=== PATIENT | male | born 1990 | race Caucasian/White ===

== ENCOUNTER 2017-01-13 18:46 | Inpatient (IN) | payer OTHER ==
[2017-01-13] MEDS ORDERED: HYDROmorphONE/DILAUDID 1 MG/ML SYR IVP ONE ×4 (19:35→23:35)
[2017-01-13] MEDS ORDERED: ONDANSETRON 4 MG/2 ML VIAL IVP ONE (19:35)
[2017-01-13 19:41] LABS: % IMMATURE GRANULYOCYTES 0.5 % (0.0-1.1); ABSOLUTE IMMATURE GRANULOCYTES 0.05 10^3/uL (0.00-0.10); ADD DIFF? NO; ADD MORPH? NO; ADD SCAN? NO; ATYPICAL LYMPHOCYTE FLAG 10 (0-99); FRAGMENT RBC FLAG 0 (0-99); HEMATOCRIT 49.3 % (40.0-51.0); LEFT SHIFT FLG 0 (0-99); LIPEMIA HEMOLYSIS FLAG 90 (0-99); MEAN CELL HEMOGLOBIN 33.6 pg (27.9-34.1); MEAN CELL HEMOGLOBIN CONCENTR. 36.5 g/dL (32.4-36.7); MEAN CELL VOLUME 92.1 fL (81.5-99.8); MEAN PLATELET VOLUME 10.6 fL (8.7-11.7); PLATELET CLUMPS FLAG 10 (0-99); PLATELET COUNT 229 10^3/uL (150-400); RED BLOOD CELL COUNT 5.35 10^6/uL (4.40-6.38); RED CELL DISTRIBUTION WIDTH 11.9 % (11.5-15.2)
[2017-01-13 19:46] LABS: ALANINE AMINOTRANSFERASE 216 IU/L (21-72); ALBUMIN 4.9 g/dL (3.5-5.0); ALKALINE PHOSPHATASE 137 IU/L (38-126); ANION GAP 13 mEq/L (8-16); ASPARTATE AMINOTRANSFERASE 117 IU/L (17-59); BILIRUBIN,TOTAL 1.2 mg/dL (0.1-1.4); BILIRUBIN-CONJUGATED 0.6 mg/dL (0.0-0.5); BILIRUBIN-UNCONJUGATED 0.6 mg/dL (0.0-1.1); CALCIUM 10.2 mg/dL (8.5-10.4); CARBON DIOXIDE 25 mEq/l (22-31); CHLORIDE 101 mEq/L (97-110); CREATININE 0.9 mg/dL (0.7-1.3); GLOMERULAR FILTRATION RATE > 60; GLUCOSE 125 mg/dL (70-100); POTASSIUM 4.2 mEq/L (3.5-5.2); SODIUM 139 mEq/L (134-144)
[2017-01-13] MEDS ORDERED: HYDROmorphONE/DILAUDID 1 MG/ML SYR ONE ×2 (20:30→23:39)
--- NOTE | 2017-01-13 20:48 | EDPHY ---
H & P Stated Complaint: Epigastric abdo pain since this morning. Time Seen by Provider: 01/13/17 19:01 HPI/ROS: CHIEF COMPLAINT: Mid epigastric pain HISTORY OF PRESENT ILLNESS: This is a 26-year-old male who presents with 1 day of mid epigastric pain that extends into his back. He has a history of necrotizing pancreatitis for which he was hospitalized at [facility] for several weeks in 2014. This was apparently alcohol induced. He remained sober for several months but resumed drinking and was hospitalized here in May of 2015 with an episode of pancreatitis. He had a pancreatic pseudocyst that was not scapulae drained by Dr. Bain in July of 2015. For the most part he has remained sober, but he was drinking this past weekend and today developed pain consistent with his previous episodes of pancreatitis. He has had nausea but no vomiting. He denies fever. He has had regular bowel movements, no diarrhea or constipation. He also has a history of ureterolithiasis. He denies flank pain, hematuria, dysuria, difficulty urinating. REVIEW OF SYSTEMS: A ten point review of systems was performed and is negative with the exception of the items mentioned in the HPI. Source: Patient Exam Limitations: No limitations - Personal History Current Tetanus Diphtheria and Acellular Pertussis (TDAP): Yes - Medical/Surgical History Hx Asthma: No Hx Chronic Respiratory Disease: No Hx Diabetes: No Hx Cardiac Disease: No Hx Renal Disease: No Hx Cirrhosis: No Hx Alcoholism: Yes Hx HIV/AIDS: No Hx Splenectomy or Spleen Trauma: No Other PMH: PMH: pancreatitis; kidney stone. PSH: denies - Social History Smoking Status: Light smoker - Physical Exam Exam: General Appearance: Alert. Vital signs reviewed. Heart rate 112 at triage. Blood pressure 165/103 at triage. Eyes: Pupils equal and round, no conjunctival injection, no discharge. Anicteric. ENT, Mouth: Mucous membranes are moist, no oropharyngeal erythema or edema. Neck: No lymphadenopathy, supple. Respiratory: Lungs are clear to auscultation; no wheezes, rales, or rhonchi. Cardiovascular: Tachycardic; no murmur, rub, or gallop. Gastrointestinal: Abdomen is soft and with midepigastric tenderness, no masses or organomegaly, bowel sounds normal. Skin: Warm and dry, no rashes on exposed skin, normal color. Back: Nontender to palpation over the thoracolumbar spine. No CVAT. Extremities: No lower extremity edema, no calf tenderness or swelling. Neurological: Alert and oriented. Moving all four extremities easily and equally. Psychiatric: Normal affect. Constitutional: Initial Vital Signs Temperature (C) 36.4 C 01/13/17 18:49 Heart Rate 112 H 01/13/17 18:49 Respiratory Rate 18 01/13/17 18:49 Blood Pressure 165/103 H 01/13/17 18:49 O2 Sat (%) 96 01/13/17 18:49 O2 Delivery Mode Room Air Allergies/Adverse Reactions: No Known Allergies Allergy (Verified 01/13/17 20:07) Home Medications: Medication Instructions Recorded Gabapentin [Neurontin 300 MG (*)] 1,200 mg PO TID 01/13/17 Marston Carbonate ER [Eskalith Cr 450 mg PO HS 01/13/17 450 mg (*)] Naltrexone HCl [Revia 50mg (RX)] 50 mg PO HS 01/13/17 QUEtiapine FUMARATE [Seroquel 300 mg PO HS 01/13/17 300mg (*)] Medical Decision Making ED Course/Re-evaluation: Abdominal pain consistent with previous episodes of pancreatitis in the setting of recent alcohol use. She is given 1 L normal saline, 4 mg Zofran IV, and a total of 2 mg of Dilaudid IV in the emergency department. He continued with midepigastric pain and will require hospitalization for pain control. His lipase is elevated at 654. Transaminases and alkaline phosphatase are mildly elevated. White blood cell count is normal. He is being admitted to the hospitalist service. Differential Diagnosis: Abdominal pain including but not limited to pancreatitis, ureterolithiasis, bowel obstruction, appendicitis, cholecystitis, gastritis and urinary tract infection. - Data Points Laboratory Results: Laboratory Results 01/13/17 16:00 01/13/17 16:00 01/13/17 01/13/17 16:00 16:00 WBC 9.30 10^3/uL 10^3/uL (3.80-9.50) RBC 5.35 10^6/uL 10^6/uL (4.40-6.38) Hgb 18.0 g/dL H g/dL (13.7-17.5) Hct 49.3 % % (40.0-51.0) MCV 92.1 fL fL (81.5-99.8) MCH 33.6 pg pg (27.9-34.1) MCHC 36.5 g/dL g/dL (32.4-36.7) RDW 11.9 % % (11.5-15.2) Plt Count 229 10^3/uL 10^3/uL (150-400) MPV 10.6 fL fL (8.7-11.7) Neut % (Auto) 72.2 % % (39.3-74.2) Lymph % (Auto) 16.7 % % (15.0-45.0) Mccracken % (Auto) 7.0 % % (4.5-13.0) Eos % (Auto) 2.7 % % (0.6-7.6) Baso % (Auto) 0.9 % % (0.3-1.7) Nucleat RBC Rel Count 0.0 % % (0.0-0.2) Absolute Neuts (auto) 6.72 10^3/uL H 10^3/uL (1.70-6.50) Absolute Lymphs (auto) 1.55 10^3/uL 10^3/uL (1.00-3.00) Absolute Monos (auto) 0.65 10^3/uL 10^3/uL (0.30-0.80) Absolute Eos (auto) 0.25 10^3/uL 10^3/uL (0.03-0.40) Absolute Basos (auto) 0.08 10^3/uL 10^3/uL (0.02-0.10) Absolute Nucleated RBC 0.00 10^3/uL 10^3/uL (0-0.01) Immature Gran % 0.5 % % (0.0-1.1) Immature Gran # 0.05 10^3/uL 10^3/uL (0.00-0.10) Sodium 139 mEq/L mEq/L (134-144) Potassium 4.2 mEq/L mEq/L (3.5-5.2) Chloride 101 mEq/L mEq/L (97-110) Carbon Dioxide 25 mEq/l mEq/l (22-31) Anion Gap 13 mEq/L mEq/L (8-16) BUN 9 mg/dL mg/dL (7-23) Creatinine 0.9 mg/dL mg/dL (0.7-1.3) Estimated GFR > 60 Glucose 125 mg/dL H mg/dL (70-100) Calcium 10.2 mg/dL mg/dL (8.5-10.4) Total Bilirubin 1.2 mg/dL mg/dL (0.1-1.4) Conjugated Bilirubin 0.6 mg/dL H mg/dL (0.0-0.5) Unconjugated Bilirubin 0.6 mg/dL mg/dL (0.0-1.1) AST 117 IU/L H IU/L (17-59) ALT 216 IU/L H IU/L (21-72) Alkaline Phosphatase 137 IU/L H IU/L (38-126) Total Protein 8.0 g/dL g/dL (6.3-8.2) Albumin 4.9 g/dL g/dL (3.5-5.0) Lipase 654.0 IU/L H IU/L (23-300) Medications Given: Discontinued Medications Hydromorphone HCl (Dilaudid) 1 mg IVP EDNOW ONE Stop: 01/13/17 19:36 Last Admin: 01/13/17 19:43 Dose: 1 mg Hydromorphone HCl (Dilaudid) 0.5 mg IVP EDNOW ONE Stop: 01/13/17 20:12 Last Admin: 01/13/17 20:16 Dose: 0.5 mg Hydromorphone HCl (Dilaudid) 0.5 mg IVP EDNOW ONE Stop: 01/13/17 20:36 Last Admin: 01/13/17 20:36 Dose: 0.5 mg Ondansetron HCl (Zofran) 4 mg IVP EDNOW ONE Stop: 01/13/17 19:36 Last Admin: 01/13/17 19:44 Dose: 4 mg Departure - Departure Disposition: [facility] Acute Clinical Impression: Pancreatitis Qualifiers: Chronicity: acute Pancreatitis type: alcohol induced Acute pancreatitis complication: unspecified Qualified Code(s): K85.20 - Alcohol induced acute pancreatitis without necrosis or infection Condition: Fair
[2017-01-13] MEDS ORDERED: ACETAMINOPHEN 325 MG TAB PO PRN (20:58)
[2017-01-13] MEDS ORDERED: ONDANSETRON DISINTEGRATING 4 MG TAB PO PRN (20:58)
[2017-01-13] MEDS ORDERED: HYDROmorphONE/DILAUDID 1 MG/ML SYR IVP PRN ×2 (20:59→21:37)
[2017-01-13] MEDS: NS 1,000 ML IV SCH (21:54)
[2017-01-13] MEDS: LITHIUM CARBONATE ER 450 MG TAB PO SCH (21:55)
[2017-01-13] MEDS: QUEtiapine FUMARATE 300 MG TAB PO SCH (21:56)
[2017-01-13] MEDS: GABAPENTIN 400 MG CAP PO SCH (21:57)
--- NOTE | 2017-01-13 22:20 | GHP ---
[f rep st] HISTORY AND PHYSICAL DATE OF ADMISSION: 01/13/2017 CHIEF COMPLAINT: Pancreatitis. Acute abdominal pain. HISTORY OF PRESENT ILLNESS: Patient is a 26-year-old male with history of alcoholic pancreatitis in the past. He was diagnosed with necrotizing pancreatitis in September 2014, requiring 18 day hospitali zation. In August 01, 2015, he underwent EUS that demonstrated pancreatic cyst that was negative f or cancer. He was followed by Dr. Bain as an outpatient, who had released him from [facility] 6 months ago. Patient has not had any alcohol or marijuana in the past year but decided to drink over the last couple of nights due to increased depression this past month. First night, he drank approximately 8 vodka shooters and then 6-7 last night. He awoke with severe sharp epigastric pain that radiated to the back when sitting up. He had mild nausea. He had a normal BM today. He had s haking all over secondary to pain. No fevers or chills. No headache. Currently, pain is 7/10 desp ite Dilaudid in the emergency room. REVIEW OF SYSTEMS: I completed a 10-point review of systems, negative except as noted in HPI. PAST MEDICAL HISTORY: 1. Several episodes of alcohol pancreatitis. 2. Necrotizing pancreatitis September 2014, requiring long hospitalization. 3. Right kidney stones. 4. Pancreatic cyst. Negative for malignancy in July 2015. 5. Bipolar. 6. Anxiety. PAST SURGICAL HISTORY: Root canal, left arthroscopic knee surgery. FAMILY HISTORY: Grandmother with breast cancer. Maternal grandmother with a stroke. SOCIAL HISTORY: Lives in [place] with his brother . Smokes 5-10 cigarettes a day. Had n ot done any marijuana or alcohol in the past year. ALLERGIES: No known drug allergies. MEDICATIONS: See medication reconciliation. PHYSICAL EXAMINATION: VITAL SIGNS: Temperature 36.7, blood pressure 142/99, heart rate 112 now 77, respirations 18, 95% on room air. GENERAL: Obese male. No acute distress, lying in bed. HEENT: PERRLA. Dry mucous membranes. CV: Regular rate and rhythm. No murmurs, gallops, rubs. LUNGS: Clear to auscultation bilaterally. ABDOMEN: Soft. Mild distention. Right upper quadrant mild epi gastric pain. No rebound or guarding. Quiet bowel sounds. MUSCULOSKELETAL: 5/5 upper lower extrem ity strength. SKIN: Warm, dry. No ulcerations. NEURO: 2 through 12 intact. No tremors or tongu e fasciculation. PSYCH: Alert and oriented x3. LABS: WBC is 9. Hemoglobin 18. Hematocrit 49. Platelets 229. Sodium 139. Potassium 4.2. Chlor kait 101. Anion gap 13. Creatinine 0.9. Glucose 125. Total bilirubin 1.2. Conjugated 0.6. AST 1 17. ALT 216. Alkaline phosphatase 137. Lipase 654. Ultrasound abdomen is pending. ASSESSMENT AND PLAN: 1. Acute alcohol pancreatitis: Patient had been sober for over a year and had excessive amount of alcohol in the last 2 days. Lipase is elevated at 600. We will treat supportively with n.p.o., IV fluids, and IV Dilaudid, p.r.n. antiemetics. 2. Acute abdominal pain, again, secondary to pancreatitis. We will check abdominal ultrasound. 3. Transaminitis, suspect secondary to alcohol. We will repeat these in the morning. 4. Bipolar/anxiety: He is followed closely by a psychiatrist. Also goes to therapy twice a week. We will resume his medications tomorrow. 5. Alcohol abuse: He had been abstinent for a year. Goes to AA. Was counseled on cessation. 6. Diet, n.p.o., IV fluids. 7. DVT prophylaxis, Lovenox. DISPOSITION: Patient warrants inpatient admission given acute pancreatitis, abdominal pain warranti ng IV opioids and antiemetics for control of this. /[id number]/MODL
[2017-01-13] MEDS: ONDANSETRON 4 MG/2 ML VIAL IVP PRN (23:03)
[2017-01-13] MEDS ORDERED: NALOXONE HCL 0.4 MG/ML INJ IVP PRN (23:35)
[2017-01-14] MEDS: HYDROmorphONE/DILAUDID 6 MG/30 ML PCA IV PRN ×4 (00:18→22:15)
[2017-01-14] MEDS: PROMETHAZINE HCL 25 MG/ML INJ IV PRN (01:25)
[2017-01-14] MEDS: NS 1,000 ML IV SCH ×3 (02:43→22:15)
[2017-01-14 05:53] LABS: ALANINE AMINOTRANSFERASE 199 IU/L (21-72); ALBUMIN 4.4 g/dL (3.5-5.0); ALKALINE PHOSPHATASE 123 IU/L (38-126); ANION GAP 12 mEq/L (8-16); ASPARTATE AMINOTRANSFERASE 126 IU/L (17-59); BILIRUBIN,TOTAL 1.1 mg/dL (0.1-1.4); CALCIUM 9.6 mg/dL (8.5-10.4); CARBON DIOXIDE 23 mEq/l (22-31); CHLORIDE 105 mEq/L (97-110); CREATININE 0.9 mg/dL (0.7-1.3); GLOMERULAR FILTRATION RATE > 60; GLUCOSE 182 mg/dL (70-100); POTASSIUM 4.7 mEq/L (3.5-5.2); SODIUM 140 mEq/L (134-144); TOTAL PROTEIN 7.1 g/dL (6.3-8.2)
[2017-01-14] MEDS: ENOXAPARIN 40 MG/0.4 ML SYR SC SCH (09:48)
[2017-01-14] MEDS: KETOROLAC 30 MG/1 ML SDV IVP PRN ×2 (09:48→15:07)
[2017-01-14] MEDS: GABAPENTIN 400 MG CAP PO SCH ×3 (09:49→21:02)
--- NOTE | 2017-01-14 10:55 | HOSPPROG ---
Hospitalist Progress Note Assessment/Plan: * alcoholic pancreatitis * Ultrasound does not show biliary issues * Continue on clear liquids today * Will see how he does tomorrow * bipolar * Continue meds Subjective: Feels a little better. Pain well controlled Objective: Vital Signs Temp Pulse Resp BP Pulse Ox 36.4 C 64 17 144/88 H 93 01/14/17 10:14 01/14/17 10:14 01/14/17 10:14 01/14/17 10:14 01/14/17 10:14 Laboratory Results 01/14/17 04:34 01/13/17 01/14/17 01/15/17 05:59 05:59 05:59 Intake Total 2029.6 Output Total 800 Balance 1229.6 - Physical Exam Constitutional: no apparent distress, appears nourished, not in pain Eyes: anicteric sclera, EOMI Ears, Nose, Mouth, Throat: moist mucous membranes, hearing normal, ears appear normal Cardiovascular: regular rate and rhythym Respiratory: no respiratory distress, no rales or rhonchi, clear to auscultation Gastrointestinal: normoactive bowel sounds, tenderness (Mild epigastric), No guarding, No rebound, No distension Skin: warm Neurologic: AAOx3 Psychiatric: interacting appropriately, not anxious, not encephalopathic, thought process linear ICD10 Worksheet Patient Problems: Problems Problem Status Onset Pancreatitis Acute Acute pancreatitis Acute
[2017-01-14] MEDS: ONDANSETRON 4 MG/2 ML VIAL IVP PRN (17:24)
[2017-01-14] MEDS: LITHIUM CARBONATE ER 450 MG TAB PO SCH (20:42)
[2017-01-14] MEDS: QUEtiapine FUMARATE 300 MG TAB PO SCH (20:42)
[2017-01-15] MEDS: HYDROmorphONE/DILAUDID 6 MG/30 ML PCA IV PRN ×4 (04:14→19:06)
[2017-01-15] MEDS: NS 1,000 ML IV SCH (04:15)
[2017-01-15 05:11] LABS: ABSOLUTE IMMATURE GRANULOCYTES 0.15 10^3/uL (0.00-0.10); ADD DIFF? NO; ADD MORPH? NO; ADD SCAN? NO; ATYPICAL LYMPHOCYTE FLAG 0 (0-99); FRAGMENT RBC FLAG 0 (0-99); HEMATOCRIT 44.8 % (40.0-51.0); HEMOGLOBIN 15.9 g/dL (13.7-17.5); LEFT SHIFT FLG 0 (0-99); LIPEMIA HEMOLYSIS FLAG 90 (0-99); MEAN CELL HEMOGLOBIN 33.1 pg (27.9-34.1); MEAN CELL HEMOGLOBIN CONCENTR. 35.5 g/dL (32.4-36.7); MEAN CELL VOLUME 93.1 fL (81.5-99.8); MEAN PLATELET VOLUME 10.9 fL (8.7-11.7); PLATELET CLUMPS FLAG 0 (0-99); PLATELET COUNT 176 10^3/uL (150-400); RED BLOOD CELL COUNT 4.81 10^6/uL (4.40-6.38); RED CELL DISTRIBUTION WIDTH 11.9 % (11.5-15.2)
[2017-01-15 05:26] LABS: ALANINE AMINOTRANSFERASE 169 IU/L (21-72); ALBUMIN 4.1 g/dL (3.5-5.0); ALKALINE PHOSPHATASE 114 IU/L (38-126); ANION GAP 9 mEq/L (8-16); ASPARTATE AMINOTRANSFERASE 79 IU/L (17-59); BILIRUBIN,TOTAL 1.2 mg/dL (0.1-1.4); CALCIUM 9.4 mg/dL (8.5-10.4); CARBON DIOXIDE 23 mEq/l (22-31); CHLORIDE 105 mEq/L (97-110); CREATININE 0.7 mg/dL (0.7-1.3); GLOMERULAR FILTRATION RATE > 60; GLUCOSE 175 mg/dL (70-100); POTASSIUM 4.1 mEq/L (3.5-5.2); SODIUM 137 mEq/L (134-144); TOTAL PROTEIN 6.6 g/dL (6.3-8.2)
[2017-01-15] MEDS: GABAPENTIN 400 MG CAP PO SCH ×3 (08:45→20:53)
[2017-01-15] MEDS: ENOXAPARIN 40 MG/0.4 ML SYR SC SCH (08:45)
[2017-01-15] MEDS: KETOROLAC 30 MG/1 ML SDV IVP PRN ×2 (08:57→20:51)
--- NOTE | 2017-01-15 12:15 | HOSPPROG ---
Hospitalist Progress Note Assessment/Plan: * alcoholic pancreatitis * Ultrasound does not show biliary issues * Start CLD today (was not started yesterday) * Decrease IVF * bipolar * Continue meds. He has not been taking these as he refused due to pain. He is starting to have sx's. He will start taking today Dispo: if tolerates PO and clinically improves, will likely d/c tomorrow. Subjective: Doing better. Still with mild abd pain. Wants to eat Objective: Vital Signs Temp Pulse Resp BP Pulse Ox 36.5 C 68 16 152/94 H 95 01/15/17 08:00 01/15/17 11:53 01/15/17 11:53 01/15/17 08:00 01/15/17 11:53 Laboratory Results 01/15/17 04:19 01/15/17 04:19 01/14/17 01/15/17 01/16/17 05:59 05:59 05:59 Intake Total 2029.6 4490 Output Total 800 2250 450 Balance 1229.6 2240 -450 - Physical Exam Constitutional: no apparent distress Eyes: PERRL, anicteric sclera, EOMI Ears, Nose, Mouth, Throat: moist mucous membranes, hearing normal, ears appear normal, no oral mucosal ulcers Cardiovascular: regular rate and rhythym, no murmur, rub, or gallop Respiratory: no respiratory distress, no rales or rhonchi, clear to auscultation Gastrointestinal: tenderness (mild epigastric tenderness) Skin: warm, normal color Neurologic: AAOx3 Psychiatric: interacting appropriately ICD10 Worksheet Patient Problems: Problems Problem Status Onset Pancreatitis Acute Acute pancreatitis Acute
[2017-01-15] MEDS: PROMETHAZINE HCL 25 MG/ML INJ IV PRN ×2 (12:41→20:48)
[2017-01-15] MEDS: LITHIUM CARBONATE ER 450 MG TAB PO SCH (20:53)
[2017-01-15] MEDS: QUEtiapine FUMARATE 300 MG TAB PO SCH (20:53)
[2017-01-15] MEDS: LORazepam 0.5 MG TAB PO PRN (21:04)
[2017-01-16 05:11] LABS: % IMMATURE GRANULYOCYTES 0.8 % (0.0-1.1); ABSOLUTE IMMATURE GRANULOCYTES 0.08 10^3/uL (0.00-0.10); ADD DIFF? NO; ADD MORPH? NO; ADD SCAN? NO; ATYPICAL LYMPHOCYTE FLAG 0 (0-99); FRAGMENT RBC FLAG 0 (0-99); HEMATOCRIT 41.3 % (40.0-51.0); HEMOGLOBIN 14.7 g/dL (13.7-17.5); LEFT SHIFT FLG 0 (0-99); LIPEMIA HEMOLYSIS FLAG 90 (0-99); MEAN CELL HEMOGLOBIN 33.3 pg (27.9-34.1); MEAN CELL HEMOGLOBIN CONCENTR. 35.6 g/dL (32.4-36.7); MEAN CELL VOLUME 93.4 fL (81.5-99.8); PLATELET CLUMPS FLAG 10 (0-99); PLATELET COUNT 108 10^3/uL (150-400); RED BLOOD CELL COUNT 4.42 10^6/uL (4.40-6.38); RED CELL DISTRIBUTION WIDTH 11.9 % (11.5-15.2)
[2017-01-16 05:28] LABS: ANION GAP 9 mEq/L (8-16); CALCIUM 8.7 mg/dL (8.5-10.4); CARBON DIOXIDE 26 mEq/l (22-31); CHLORIDE 99 mEq/L (97-110); CREATININE 0.8 mg/dL (0.7-1.3); GLOMERULAR FILTRATION RATE > 60; GLUCOSE 122 mg/dL (70-100); POTASSIUM 3.6 mEq/L (3.5-5.2); SODIUM 134 mEq/L (134-144)
[2017-01-16] MEDS: HYDROmorphONE/DILAUDID 6 MG/30 ML PCA IV PRN ×2 (05:42→11:24)
[2017-01-16] MEDS: NS 1,000 ML IV SCH (05:42)
[2017-01-16] MEDS: GABAPENTIN 400 MG CAP PO SCH ×3 (08:18→21:01)
[2017-01-16] MEDS: ENOXAPARIN 40 MG/0.4 ML SYR SC SCH (08:18)
--- NOTE | 2017-01-16 15:33 | HOSPPROG ---
Hospitalist Progress Note Assessment/Plan: * alcoholic pancreatitis * Ultrasound does not show biliary issues * CLD * Decrease IVF * bipolar * Continue home meds. Dispo: Pt is still having significant abd pain and required IV pain meds overnight. Some improvement. Today, will continue CLD. Given his pain and exam, prefer conservative mgmt tonight and advance diet tomorrow. ORTHO RN will be stopped and he will transition to only PO meds. Hoping to discharge tomorrow. Subjective: still with abd pain. required dilaudid ORTHO RN overnight Objective: Vital Signs Temp Pulse Resp BP Pulse Ox 36.7 C 104 H 18 139/77 H 94 01/16/17 08:00 01/16/17 08:00 01/16/17 04:24 01/16/17 08:00 01/16/17 08:00 Laboratory Results 01/16/17 04:24 01/16/17 04:24 01/15/17 01/16/17 01/17/17 05:59 05:59 05:59 Intake Total 4490 2719.5 Output Total 2250 2225 Balance 2240 494.5 - Physical Exam Constitutional: no apparent distress, appears nourished, not in pain Eyes: PERRL, anicteric sclera, EOMI Ears, Nose, Mouth, Throat: moist mucous membranes, hearing normal, ears appear normal, no oral mucosal ulcers Cardiovascular: regular rate and rhythym, no murmur, rub, or gallop Respiratory: no respiratory distress, no rales or rhonchi, clear to auscultation Gastrointestinal: tenderness (mid epigastric) Skin: warm Neurologic: AAOx3, sensation intact bilaterally Psychiatric: interacting appropriately, not anxious ICD10 Worksheet Patient Problems: Problems Problem Status Onset Pancreatitis Acute Acute pancreatitis Acute
[2017-01-16] MEDS: KETOROLAC 30 MG/1 ML SDV IVP PRN (16:01)
[2017-01-16] MEDS: HYDROmorphONE/DILAUDID 2 MG TAB PO PRN ×2 (16:02→21:01)
[2017-01-16] MEDS ORDERED: BISACODYL 10 MG SUPP PR PRN (17:03)
[2017-01-16] MEDS ORDERED: LACTULOSE 20 GM/30 ML UDCUP PO PRN (17:03)
[2017-01-16] MEDS ORDERED: MAGNESIUM HYDROXIDE 30 ML UDCUP PO PRN (17:03)
[2017-01-16] MEDS ORDERED: POLYETHYLENE GLYCOL 3350 17 GM PKT PO PRN (17:03)
[2017-01-16] MEDS ORDERED: NICOTINE POLACRILEX 2 MG GUM B PRN (18:52)
[2017-01-16] MEDS: SENNOSIDES/DOCUSATE SODIUM TAB PO SCH (21:00)
[2017-01-16] MEDS: LITHIUM CARBONATE ER 450 MG TAB PO SCH (21:01)
[2017-01-16] MEDS: QUEtiapine FUMARATE 300 MG TAB PO SCH (21:01)
[2017-01-16] MEDS: LORazepam 0.5 MG TAB PO PRN (21:01)
[2017-01-17] MEDS: HYDROmorphONE/DILAUDID 2 MG TAB PO PRN ×4 (00:41→15:06)
[2017-01-17 04:54] LABS: ALANINE AMINOTRANSFERASE 96 IU/L (21-72); ALBUMIN 3.2 g/dL (3.5-5.0); ALKALINE PHOSPHATASE 98 IU/L (38-126); ANION GAP 7 mEq/L (8-16); ASPARTATE AMINOTRANSFERASE 47 IU/L (17-59); BILIRUBIN,TOTAL 2.1 mg/dL (0.1-1.4); BILIRUBIN-CONJUGATED 1.1 mg/dL (0.0-0.5); CALCIUM 9.1 mg/dL (8.5-10.4); CARBON DIOXIDE 25 mEq/l (22-31); CHLORIDE 100 mEq/L (97-110); CREATININE 0.8 mg/dL (0.7-1.3); GLOMERULAR FILTRATION RATE > 60; GLUCOSE 144 mg/dL (70-100); POTASSIUM 3.4 mEq/L (3.5-5.2); SODIUM 132 mEq/L (134-144); TOTAL PROTEIN 5.7 g/dL (6.3-8.2)
[2017-01-17] MEDS: SENNOSIDES/DOCUSATE SODIUM TAB PO SCH (09:20)
[2017-01-17] MEDS: GABAPENTIN 400 MG CAP PO SCH (09:21)
[2017-01-17] MEDS: ENOXAPARIN 40 MG/0.4 ML SYR SC SCH (09:21)
[2017-01-17 16:34] VITALS: BP 141/86; PULSE 99; RESP 17; TEMP 99.3; O2SAT 92
--- NOTE | 2017-01-17 17:16 | PDDCSUM ---
Discharge Summary Discharge Summary: DISCHARGE DIAGNOSES: -acute alcoholic pancreatitis, uncomplicated -acute alcohol abuse -history of alcoholism previously sober for greater than 1 year -prior history of narcotics abuse after previous history of pancreatitis CONSULTANTS: Dr. Gross PROCEDURES: CT scan of abdomen HOSPITAL COURSE SUMMARY: This patient with prior history of severe alcohol-induced pancreatitis had been sober for more than year but had 2 days of alcohol drinking associated with some depression. He came in at this time with acute uncomplicated pancreatitis with significant pain. He was hospitalized and treated with gut rest and hydration as well as analgesics. He has recovered well and is now eating a regular diet. No sign of complications has developed. At this point he is rate ready for going home. He is already connected with AA which he goes to daily and he also has a psychiatrist that he sees about his alcohol issues. He plans to continue those going back to AA meeting tomorrow. We had a long talk about the potential consequences of drinking both for his pancreas as well as other issues. We also spoke at length about pain medicine. The patient still does have some pain and is requesting a small number of pain tablets to take at home. He did contract with me to minimize use of these medicines and to do all he can to not seek refill from his primary care physician. He will again continue working on this at his AA meeting and with his psychiatrist. PENDING TEST RESULTS: None MEDICATION CHANGES: 16 tablets of Dilaudid 2 mg to be used as needed over the next couple days or so FOLLOW-UP PLAN: With Dr. Hale next week With Dr. Bain in 2-4 weeks if necessary Greater than 35 minutes bedside and care coordination time today
[2017-01-18 14:33] LABS: HEPATITIS Bs Ab QUANT 193 mIU/mL
== END 2017-01-17 17:50 | disposition home or self-care (01) | DRG 440 ==
LOC: F2W 21:33
PROVIDERS: ADMIT Internal Medicine; ATTEND Internal Medicine
DX: K85.20 Alcohol induced acute pancreatitis without necrosis or infection (principal); F10.10 Alcohol abuse, uncomplicated; Z72.0 Tobacco use; F41.9 Anxiety disorder, unspecified; F31.9 Bipolar disorder, unspecified
CPT/HCPCS: 86708-90; 86709-90; 96374; G0397; G0472; J1170; J1650; J1885; J2405; J2550